=== PATIENT | male | born 1975 | race Caucasian/White ===

== ENCOUNTER 2016-11-25 10:54 | Day surgery (SDC) | payer SELFPAY ==
[2016-11-22 18:19] VITALS: BMI 35.8
[2016-11-25] MEDS ORDERED: MIDAZOLAM HCL 2 MG/2 ML SINGLE DOSE VIAL ONE (12:55)
[2016-11-25] MEDS ORDERED: PROPOFOL 20 ML ONE ×2 (14:46→15:18)
[2016-11-25] MEDS ORDERED: ePHEDrine SULFATE 50 MG/1 ML AMPULE ONE (15:38)
[2016-11-25] MEDS ORDERED: DESFLURANE GAS 240 ML BOTTLE IH ONE (15:42)
[2016-11-25] MEDS ORDERED: ONDANSETRON 4 MG/2 ML VIAL IVPUSH PRN (16:27)
[2016-11-25] MEDS ORDERED: oxyCODONE HCL 5 MG TABLET PO PRN ×3 (16:27→17:14)
[2016-11-25] MEDS ORDERED: LACTATED RINGERS SOLUTION 1,000 ML IV SCH ×2 (16:30→17:15)
[2016-11-25] MEDS ORDERED: ONDANSETRON 4 MG/2 ML VIAL IVPB PRN (17:14)
--- NOTE | 2016-11-25 17:24 | OP ---
Operative Note - Note: Operative Date: 11/25/16 Pre-Operative Diagnosis: cosmetic Operation: liposuction to abdomen and flanks Findings: none Post-Operative Diagnosis: Same as Pre-op Anesthesia: General Estimated Blood Loss (mls): 100 Drains & Tubes with Location: none
[2016-11-25] MEDS ORDERED: PROMETHAZINE HCL 25 MG/1 ML VIAL ONE (18:02)
[2016-11-25 18:09] VITALS: TEMP 97.6
[2016-11-25] MEDS ORDERED: oxyCODONE HCL 5 MG TABLET ONE (18:53)
[2016-11-25 19:44] VITALS: BP 118/60; PULSE 91
--- NOTE | 2016-11-26 14:52 | OP ---
DATE OF OPERATION: 11/25/2016 PROCEDURE PERFORMED: Liposuction to abdomen, bilateral flanks. ATTENDING PHYSICIAN: Herber Aguero MD COMPRESSOR OPERATOR: None. PREOPERATIVE DIAGNOSIS: Cosmetic abdominal lipodystrophy. POSTOPERATIVE DIAGNOSIS: Cosmetic abdominal lipodystrophy. HISTORY: This is a 50-year-old male who suffered a laceration in each of the frontal scalp and the forehead involving skin, frontalis, galea and muscle. He was brought to [facility] Emergency Room for treatment. The patient was marked in the holding area, awake and aware of all incisions with resulting scars. It was discussed with the patient that in order to get the most posterior aspect of the flanks the patient will have to be positioned in each a right lateral decubitus, left lateral decubitus, and a supine position for this operation. He understands and also understands that this will take additional time for care and patient positioning. He agrees to proceed. Ancef 2 g was given preoperatively. Sequential pressure stockings and TERRENCE hose were given preoperatively. PROCEDURE IN DETAIL: He is brought to the operating room and placed in a supine position. General anesthesia is induced. He is then carefully positioned with all surgical and anesthesia teams available first in a right lateral decubitus position using all appropriate positioning aides and padding. He was prepped and draped in standard surgical fashion. At this point time out was called and the patient, procedure and sites are verified. Multiple stab wound incisions are then made. Wetting tumescent solution is infiltrated. The wetting solution for each side is 2 L of normal saline with 20 mL of 1% lidocaine plain and 1 ampule of 1:1000 epinephrine. Then, a second liter in each side of the same solution on each side without lidocaine. The final liter of solution is infiltrated into the abdomen in a supine position at the end the case and that is a liter of normal saline with 1 ampule of epinephrine, no lidocaine is included. With the patient in the right lateral decubitus position, liposuction is performed using a SAFE technique which include pre and post tunneling with a nonsuction basket tip cannula. The cannulas are lubricated to decreased friction injury. Liposuction is performed. The endpoint is the appearance of blood in the lipoaspirate and smooth even contour. Liposuction is performed in a deep plane with a 5-mm cannula and in a more superficial plane with a 3-mm cannula. The [employer] Power-Assisted System is used. After completion of this the liposuction holes are closed with 5-0 nylon suture. Steri-Strips are applied. The patient is then repositioned first to a supine and then into a left lateral decubitus position again with all surgical and anesthesia teams available, all positioning aides being used, all pressure points adequately padded and axillary role used on both lateral positions. The same procedure was then performed. The wetting solution is infiltrated. A full 20 minutes is awaited prior to liposuction and the SAFE liposuction technique is used. Liposuction is performed as per the other side. At this point the holes are then closed with a series of 5-0 nylon suture. Steri-Strips are applied. The patient is then repositioned to the supine position with the surgical and anesthesia teams available. In the supine position again all pressure points are carefully padded. It should be noted that at every position change, the patient is redraped and prepped and entirely visualized throughout the entirety of operation. The same procedure for liposuction is then performed on the abdomen. The total amounts of lipoaspirate are 1500 mL from each the right and the left flank and 1300 mL from the anterior abdomen with a total lipoaspirate for the case of 4300 mL of lipoaspirate. Post tunneling was then performed. All liposuction holes were closed with 5-0 nylon suture. Dressings were applied with Steri-Strips, ABD gauze and abdominal binder. The patient was awoken from anesthesia and transferred to Recovery without complication. Evelyn [id number]
== END 2016-11-25 19:40 | disposition home or self-care (01) ==
LOC: FOR 10:54 → FASU 10:54
PROVIDERS: ATTEND Plastic Surgery
PROC: 0J083ZZ Alteration of Abdomen Subcutaneous Tissue and Fascia, Percutaneous Approach (ICD-10-PCS; principal; 2016-11-25 14:13)
DX: Z41.1 Encounter for cosmetic surgery (principal); E88.1 Lipodystrophy, not elsewhere classified
CPT/HCPCS: 94760